=== PATIENT | male | born 1970 | race Caucasian/White ===

== ENCOUNTER 2019-05-18 12:11 | Emergency (ER) | payer OTHER ==
[~2019-05-18] VITALS: Ht 195.6 cm; Wt 133.8 kg
[2019-05-18] MEDS ORDERED: ATACAND16 MG PO (12:36)
== END 2019-05-18 16:57 | disposition home or self-care (01) ==
LOC: ER 12:11
DX: S33.5XXA Sprain of ligaments of lumbar spine, initial encounter (principal); S10.81XA Abrasion of other specified part of neck, initial encounter; M25.512 Pain in left shoulder; M25.511 Pain in right shoulder; M54.89 Other dorsalgia; V49.88XA Car occupant (driver) (passenger) injured in other specified transport accidents, initial encounter; Y93.89 Activity, other specified; Y92.488 Other paved roadways as the place of occurrence of the external cause; Y99.8 Other external cause status